=== PATIENT | female | born 1995 | race Caucasian/White ===

== ENCOUNTER 2020-07-09 06:01 | Inpatient (IN) | payer BC, SELFPAY ==
[2020-07-09] VITALS (139 sets, daily range): BP systolic 107–157; BP diastolic 62–122; PULSE 87–137; RESP 18; TEMP 36.4–37.2; O2SAT 97–100; BMI 39.4
--- NOTE | 2020-07-09 06:01 | LDADM ---
This patient, Ryann Barrera, was admitted to Labor/Delivery/Recovery 105 on 07/09/20 at 06:01. Plans for labor, pain management and were discussed with patient. Patient/family oriented to hospital policies and general routines including ID bracelet, bed and alarms, visiting hours, pain management, procedures, bathroom and other care routines, personal items, smoking policy, room service/diet and guest tray routines, infant security routines, and visiting hours. Patient/Family are encouraged to report perceived risks to care and to ask questions if they do not understand what they are told or what they should do. See OBIX for further documentation.
[2020-07-09] MEDS: LACTATED RINGERS 1,000 ML 125 ML IV CONT ×2 (07:10→10:19)
[2020-07-09] MEDS: OXYTOCIN 30 UNITS/NS 500 ML 30 UNITS/500 ML BAG 6 UNITS IV CONT (07:11)
[2020-07-09 07:23] LABS: Basophils Percent Auto 0.3 % (0.2-1.2); Eosinophils Absolute Auto 0.1 K/mm3 (0-0.3); Eosinophils Percent Auto 0.5 % (0-4.4); Hematocrit 34.5 % (37.0-47.0); Hemoglobin 11.4 g/dL (12.0-15.0); Immature Granulocyte Absolute 0.05 K/mm3 (0.00-0.031); Immature Granulocyte Percent A 0.5 % (0-0.5); Lymphocytes Absolute Auto 1.52 K/mm3 (0.9-3.2); Lymphocytes Percent Auto 15.2 % (18.3-44.2); Mean Corpuscular Volume 84.8 fl (80-100); Mean Platelet Volume 11.6 fl (7.4-10.4); Monocytes Absolute Auto 0.5 K/mm3 (0.1-0.6); Monocytes Percent Auto 5.1 % (2.6-8.5); Neutrophils Absolute Auto 7.8 K/mm3 (1.3-6.7); Neutrophils Percent Auto 78.4 % (45.5-73.1); Platelet Count Result 239 k/mm3 (150-375); Red Blood Count 4.07 M/mm3 (4.2-5.4); Red Cell Distribution Width 13.7 % (11.5-14.5)
[2020-07-09 07:35] LABS: Alanine Aminotransferase 15 U/L (4-35); Albumin Level 3.7 g/dL (3.5-5.1); Alkaline Phosphatase 163 U/L (38-126); Anion Gap 8 mmol/L (8-16); Aspartate Amino Transferase 20 U/L (14-36); Bilirubin,Total 0.4 mg/dL (0.2-1.3); Blood Urea Nitrogen 10 mg/dL (7-17); Calcium 9.4 mg/dL (8.4-10.2); Carbon Dioxide 21 mmol/L (22-30); Chloride 107 mmol/L (98-107); Estimated CRCL calculation 205 ml/min; Estimated Glomerular Filt Rate > 60; Glucose 91 mg/dL (65-105); Sodium 136 mmol/L (137-145); Uric Acid 4.5 mg/dL (2.5-7.5)
[2020-07-09 07:36] LABS: Potassium 3.7 mmol/L (3.4-5.0)
--- NOTE | 2020-07-09 08:52 | WPDOBADMIT ---
Obstetrics - Admit Note Admission Note: record reviewed. Additions to the history and/or subsequent changes in the physical findings follow. 25 y/o G1 at 39 4/7 weeks here desiring induction of labor. GBS neg. AVSS NST reactive TOCO: contractions every 2-4 min ABD soft, nontender, gravid, vertex EXT nontender Cervix 3/50/-2. AROM with clear fluid. A: IUP at term with favorable cervix, desiring induction of labor. P: Oxytocin. Anticipate .
--- NOTE | 2020-07-09 10:51 | WPDANESEPP ---
Anes - Eval Pre Procedure Procedure: labor epidural Date/Time: 07/09/20 10:51 Surgeon: shonda Preop Diagnosis: pain duringn labor Pre Op Diagnosis: iol Patient Data Age: 25 Gender: F Height: 5 ft 9.5 in Weight: 123 kg Last Vital Signs Temp 36.6 C 07/09/20 10:30 Pulse 96 07/09/20 10:49 BP 141/92 H 07/09/20 10:49 Pulse Ox 99 07/09/20 10:46 Allergies Allergy/AdvReac Type Severity Reaction Status Date / Time No Known Allergies Allergy Verified 06/14/20 14:43 Home Medications Medication Instructions Recorded Confirmed Type PNV cmb#95-ferrous fumarate-FA 1 tablet PO DAILY 06/14/20 07/09/20 History [] ergocalciferol (vitamin D2) 1,250 mcg PO WEEKLY 06/14/20 06/14/20 History [Vitamin D2] ferrous sulfate 325 mg PO DAILY 06/14/20 07/09/20 History Laboratory Tests 07/09/20 07/09/20 07/09/20 07:00 07:00 07:00 WBC 10.0 K/mm3 K/mm3 (4.5-10.0) RBC 4.07 M/mm3 L M/mm3 (4.2-5.4) Hgb 11.4 g/dL L g/dL (12.0-15.0) Hct 34.5 % L % (37.0-47.0) MCV 84.8 fl fl (80-100) MCH 28.0 pg pg (26-34) MCHC 33.0 g/dl g/dl (32-36) RDW 13.7 % % (11.5-14.5) Plt Count 239 k/mm3 k/mm3 (150-375) MPV 11.6 fl H fl (7.4-10.4) Immature Gran % (Auto) 0.5 % % (0-0.5) Neut % (Auto) 78.4 % H % (45.5-73.1) Lymph % (Auto) 15.2 % L % (18.3-44.2) [place] % (Auto) 5.1 % % (2.6-8.5) Eos % (Auto) 0.5 % % (0-4.4) Baso % (Auto) 0.3 % % (0.2-1.2) Lymph # (Auto) 1.52 K/mm3 K/mm3 (0.9-3.2) [place] # (Auto) 0.5 K/mm3 K/mm3 (0.1-0.6) Eos # (Auto) 0.1 K/mm3 K/mm3 (0-0.3) Baso # (Auto) 0.0 K/mm3 K/mm3 (0.0-0.1) Abs Immat Gran (auto) 0.05 K/mm3 H K/mm3 (0.00-0.031) Absolute Neuts (auto) 7.8 K/mm3 H K/mm3 (1.3-6.7) Absolute Nucleated RBC 0.0 K/mm3 K/mm3 (0.0-0.012) Nucleated RBC % 0.0 % % (0.0-0.2) Sodium Potassium Chloride Carbon Dioxide Anion Gap BUN Creatinine Estim Creat Clear Calc Estimated GFR Glucose Uric Acid Calcium Total Bilirubin AST ALT Alkaline Phosphatase Total Protein Albumin RPR Pending Blood Type A Positive Antibody Screen Negative 07/09/20 07:00 WBC RBC Hgb Hct MCV MCH MCHC RDW Plt Count MPV Immature Gran % (Auto) Neut % (Auto) Lymph % (Auto) [place] % (Auto) Eos % (Auto) Baso % (Auto) Lymph # (Auto) [place] # (Auto) Eos # (Auto) Baso # (Auto) Abs Immat Gran (auto) Absolute Neuts (auto) Absolute Nucleated RBC Nucleated RBC % Sodium 136 mmol/L L mmol/L (137-145) Potassium 3.7 mmol/L mmol/L (3.4-5.0) Chloride 107 mmol/L mmol/L (98-107) Carbon Dioxide 21 mmol/L L mmol/L (22-30) Anion Gap 8 mmol/L mmol/L (8-16) BUN 10 mg/dL mg/dL (7-17) Creatinine 0.50 mg/dL L mg/dL (0.7-1.0) Estim Creat Clear Calc 205 ml/min ml/min Estimated GFR > 60 (59 - ) Glucose 91 mg/dL mg/dL (65-105) Uric Acid 4.5 mg/dL mg/dL (2.5-7.5) Calcium 9.4 mg/dL mg/dL (8.4-10.2) Total Bilirubin 0.4 mg/dL mg/dL (0.2-1.3) AST 20 U/L U/L (14-36) ALT 15 U/L U/L (4-35) Alkaline Phosphatase 163 U/L H U/L (38-126) Total Protein 7.0 g/dL g/dL (6.3-8.2) Albumin 3.7 g/dL g/dL (3.5-5.1) RPR Blood Type Antibody Screen Patient hx anesthesia problems: none Family hx anesthesia problems: none PMFSH Family History Family History (Reviewed 07/09/20 @ 10:
[2020-07-09 11:20] LABS: Rapid Plasma Reagin Non-Reactive (NonReactive)
[2020-07-09 11:27] LABS: Add Urine Microscopic? NO; Appearance Urine Clear (Clear); Bilirubin Urine Negative (Negative); Blood Urine Negative (Negative); Color Urine Yellow (Yellow); Glucose Urine UA Negative (Negative); Ketones Urine Negative (Negative); Leukocyte Esterase Ur Negative LEU/UL (NEGATIVE); Nitrate Urine Negative (Negative); Protein Urine Negative (Negative); Specific Grav Ur 1.016 (1.001-1.035); Urobilinogen Urine Negative mg/dL (<2.0)
--- NOTE | 2020-07-09 12:36 | PM.OBPNLAB ---
Pain Control Date/time seen: 07/09/20 12:36 Comments: Comfortable with epidural. Pelvic Exam Dilation (cm): 4 Effacement (%): 80 station: -1 Contractions Contraction frequency: 3 Contraction pattern: Regular Status status: Category l Assessment and Plan Comments: Continue labor.
--- NOTE | 2020-07-09 16:31 | PM.OBPRVD ---
OB - Delivery Note Procedure Delivery date: 07/09/20 Procedure: Induction of labor with . Delivery monitor: external FHT and external uterine Route of delivery: Laceration description: Perineal - 2nd Degree Delivery repair: vicryl (3-0) Specimen: Yes (cord blood) Estimated blood loss (mL): 420 Anesthesia type: Epidural Disposition: PACU Complications: None Narrative: 25 y/o G1 at 39 4/7 weeks gestation who presented to the hospital for induction of labor. Oxytocin was administered intravenously. Amniotomy was performed with return of clear fluid. She received an epidural for pain control. Her labor progressed and her cervix dilated completely. She pushed with good effort and delivered the infant's head to the perineum, followed by the body. The nose and mouth were bulb suctioned. After a delay, the cord was clamped and cut. The infant was handed off the field. Cord blood was collected. The placenta delivered spontaneously and was grossly normal in appearance. The usual 3 vessel cord was noted. A second degree midline perineal laceration was sustained. This was reapproximated using 3 0 Vicryl in the usual layered fashion. Excellent hemostasis resulted as did excellent reapproximation of the normal anatomy. Needle and instrument counts were correct. The patient was taken to recovery room in stable condition. The infant went to the nursery in stable condition. I was present and scrubbed for the entire delivery. [place] Baby Date of : 07/09/20 Time of : 16:04 Weeks of gestation at delivery: 39 Infant gender: Male Weight (pounds): 7 Weight (ounces): 8 presentation: vertex position: Left Occiput Anterior Placenta delivery description: Spontaneous and Normal Configuration cord vessel description: 3 Vessels and Nuchal Cord score one minute: 9 score five minutes: 9
[2020-07-09] MEDS: OXYTOCIN 30 UNITS/NS 500 ML 30 UNITS/500 ML BAG 125 UNITS IV CONT (16:33)
--- NOTE | 2020-07-09 16:33 | PM.OBDSVD ---
DS: Admitting Diagnosis Admitting Diagnosis Admitting Diagnosis: Term with favorable cervix DS: Discharge Diagnosis Discharge Diagnosis (1) (normal spontaneous vaginal delivery): Code(s): O80 - Encounter for full-term uncomplicated delivery Status: Acute OB - DS: Summary OB Procedures : None OB Procedures Intrapartum: Spontaneous Vag Delivery OB Procedures: : None DS: Data Data Completed and Pending Labs on day of discharge: Labs from last 24 hours 07/09/20 07/09/20 07/09/20 11:19 07:00 07:00 WBC RBC Hgb Hct MCV MCH MCHC RDW Plt Count MPV Immature Gran % (Auto) Neut % (Auto) Lymph % (Auto) [place] % (Auto) Eos % (Auto) Baso % (Auto) Lymph # (Auto) [place] # (Auto) Eos # (Auto) Baso # (Auto) Abs Immat Gran (auto) Absolute Neuts (auto) Absolute Nucleated RBC Nucleated RBC % Sodium 136 L Potassium 3.7 Chloride 107 Carbon Dioxide 21 L Anion Gap 8 BUN 10 Creatinine 0.50 L Estim Creat Clear Calc 205 Estimated GFR > 60 Glucose 91 Uric Acid 4.5 Calcium 9.4 Total Bilirubin 0.4 AST 20 ALT 15 Alkaline Phosphatase 163 H Total Protein 7.0 Albumin 3.7 Urine Color Yellow Urine Appearance Clear Urine pH 6.0 Ur Specific [place] 1.016 Urine Protein Negative Urine Glucose (UA) Negative Urine Ketones Negative Ur Blood (Man) Negative Urine Nitrate Negative Urine Bilirubin Negative Urine Urobilinogen Negative Ur Leukocyte Esterase Negative RPR Blood Type A Positive Antibody Screen Negative 07/09/20 07/09/20 07:00 07:00 WBC 10.0 RBC 4.07 L Hgb 11.4 L Hct 34.5 L MCV 84.8 MCH 28.0 MCHC 33.0 RDW 13.7 Plt Count 239 MPV 11.6 H Immature Gran % (Auto) 0.5 Neut % (Auto) 78.4 H Lymph % (Auto) 15.2 L [place] % (Auto) 5.1 Eos % (Auto) 0.5 Baso % (Auto) 0.3 Lymph # (Auto) 1.52 [place] # (Auto) 0.5 Eos # (Auto) 0.1 Baso # (Auto) 0.0 Abs Immat Gran (auto) 0.05 H Absolute Neuts (auto) 7.8 H Absolute Nucleated RBC 0.0 Nucleated RBC % 0.0 Sodium Potassium Chloride Carbon Dioxide Anion Gap BUN Creatinine Estim Creat Clear Calc Estimated GFR Glucose Uric Acid Calcium Total Bilirubin AST ALT Alkaline Phosphatase Total Protein Albumin Urine Color Urine Appearance Urine pH Ur Specific [place] Urine Protein Urine Glucose (UA) Urine Ketones Ur Blood (Man) Urine Nitrate Urine Bilirubin Urine Urobilinogen Ur Leukocyte Esterase RPR Non-reactive Blood Type Antibody Screen Discharge Plan Discharge Attending physician on discharge: Chadd Ayala Discharging Clinician: Chadd Ayala Patient Disposition: Home, Self-Care Activity: pelvic rest Diet: regular Discharge Instructions: Call or return if temperature above 100.4? F, increased abdominal pain, increased vaginal bleeding or any new problems. Stand Alone Forms: General Discharge Information Follow-up/Referrals: Chadd Ayala MD [Physician] - 6 Weeks Discharge Medications: New ibuprofen 600 mg tablet 600 mg PO Q6H PRN (Reason: cramps) Qty: 30 RF: 0 ferrous sulfate 325 mg (65 mg iron) tablet 325 mg PO DAILY Qty: 30 RF: 0 No Action ergocalciferol (vitamin D2) [Vitamin D2] 1,250 mcg (50,000 unit) Capsule 1,250 mcg PO WEEKLY RF: 0 PNV cmb#95-ferrous fumarate-FA [] 28 mg iron- 800 mcg Tablet 1 tablet PO DAILY RF: 0 ferrous sulfate 325 mg (65 mg iron) Tablet 325 mg PO DAILY RF: 0 Date of admission: 07/09/20 06:01 Primary Care Provider: PHYSICIAN,X RAY INSPECTOR Admitting Provider: Chadd Ayala Attending physician on admission: Chadd Ayala
[2020-07-09] MEDS: IBUPROFEN 600 MG TABLET PO (18:42)
[2020-07-09] MEDS: BENZOCAINE 20% AER SPR (*SP) 56 GM CAN 1 SPRAY TOPICAL (19:20)
[2020-07-09] MEDS: WITCH HAZEL 40 PADS 1 PAD TOPICAL (19:20)
[2020-07-09] MEDS: ONDANSETRON INJ 4 MG/2 ML VIAL IV PUSH (19:37)
--- NOTE | 2020-07-09 19:55 | OBPPTRN ---
Patient transferred to post room # 280 via wheelchair. Support person and (in crib) present. Oriented to unit, room, information board, rooming in, admission packet and security measures. Patient verbalizes understanding.
[2020-07-09] MEDS: ACETAMINOPHEN 325 MG TABLET 650 MG PO (20:33)
[2020-07-10] MEDS: IBUPROFEN 600 MG TABLET PO ×4 (03:01→22:15)
[2020-07-10] MEDS: ACETAMINOPHEN 325 MG TABLET 650 MG PO ×4 (03:02→22:15)
[2020-07-10 05:33] LABS: Hematocrit 27.5 % (37.0-47.0)
[2020-07-10] MEDS: POLYSACCHARIDE IRON COMPLEX 150 MG CAPSULE PO ×2 (07:30→16:45)
[2020-07-10] MEDS: MULTIVIT/MIN/PREN/FOL AC/IRON TABLET 1 TAB PO (07:30)
[2020-07-10] MEDS: DOCUSATE SODIUM 100 MG CAPSULE PO (07:31)
--- NOTE | 2020-07-10 08:12 | WPDANLDPN2 ---
Anes-Prog Note L&D Date/Time: 07/10/20 08:12 Comfortable throughout: labor and delivery Neuraxial method: epidural Epidural/Spinal procedure site: clean & non-tender Neuro status: Neuro function grossly intact. Cardiovascular status: normal Respiratory status: normal Airway patency: baseline Mental status: baseline Post-Op hydration status: normal Vital Signs: Last Vital Signs Temp 37.2 C 07/09/20 20:00 Pulse 108 H 07/09/20 20:00 Resp 18 07/09/20 20:00 BP 130/81 07/09/20 20:00 Pulse Ox 98 07/09/20 20:00 Pain score (VAS): 2 I/O: Intake & Output 07/09/20 07/10/20 07/10/20 23:59 07:59 15:59 Intake Total 1488 Output Total 600 Balance 888 Patient feedback: Patient satisfied with anesthetic care.
[2020-07-10 08:30] VITALS: BP 121/74; PULSE 93; RESP 16; TEMP 36.4; O2SAT 100
--- NOTE | 2020-07-10 11:36 | PM.OBPNVD ---
OB - PN: Subj Subjective Date/time seen: 07/10/20 11:36 Narrative: Pain OK. Does not want circumcision for her son. OB - PN: Obj Data Labs CBC & Chem 7: 07/10/20 04:44 07/09/20 07:00 Labs: Laboratory Results - last 24 hr 07/10/20 04:44 Hgb 9.0 L Hct 27.5 L OB - PN A/P Plan Comments: A: PPD#1, doing well. P: Routine care. Exam Psych: Other: AVSS ABD soft, nontender, fundus firm EXT nontender
--- NOTE | 2020-07-10 18:15 | PC.NURSE ---
Patient viewed the discharge video Mother & Baby Care, The First Two Weeks . Patient was given the opportunity and encouraged to ask questions. Patient verbalized understanding of information shared and has been given the mother/baby guide for home reference.
[2020-07-10 19:40] VITALS: BP 145/71; PULSE 123; RESP 18; TEMP 36.6; O2SAT 99
[2020-07-11] MEDS: DOCUSATE SODIUM 100 MG CAPSULE PO (07:29)
[2020-07-11] MEDS: POLYSACCHARIDE IRON COMPLEX 150 MG CAPSULE PO (07:29)
[2020-07-11] MEDS: MULTIVIT/MIN/PREN/FOL AC/IRON TABLET 1 TAB PO (07:29)
[2020-07-11] MEDS: ACETAMINOPHEN 325 MG TABLET 650 MG PO (07:30)
[2020-07-11] MEDS: IBUPROFEN 600 MG TABLET PO (07:30)
[2020-07-11 08:08] VITALS: BP 137/74; PULSE 122; RESP 16; TEMP 37; O2SAT 100
[2020-07-11 09:13] VITALS: PULSE 104
--- NOTE | 2020-07-11 09:59 | PM.OBPNVD ---
OB - PN: Subj Subjective Date/time seen: 07/11/20 09:59 Narrative: Pain OK. Would like to go home. OB - PN: Obj Data Labs CBC & Chem 7: 07/10/20 04:44 07/09/20 07:00 OB - PN A/P Plan Comments: A: PPD#2, doing well. P: Home to f/u 6 weeks. Exam Psych: Other: AVSS ABD soft, nontender, fundus firm EXT nontender
--- NOTE | 2020-07-11 12:02 | PC.NURSE ---
Patient discharged home, ambulated to awaiting car. Instructions given and follow-up appointment scheduled. All questions answered.
[2020-07-12 08:19] VITALS: BP 137/81; PULSE 121; RESP 20; TEMP 37.5; O2SAT 99
== END 2020-07-11 11:30 | disposition home or self-care (01) | DRG 807 ==
LOC: ANHLDR 16:35 → ANHOB2 19:59
PROVIDERS: Admitting Provider Obstetrics & Gynecology; Visit Provider Obstetrics & Gynecology
DX: O13.4 Gestational [pregnancy-induced] hypertension without significant proteinuria, complicating childbirth (principal); Z37.0 Single live birth; Z3A.39 39 weeks gestation of pregnancy; O99.214 Obesity complicating childbirth; E66.9 Obesity, unspecified; O70.1 Second degree perineal laceration during delivery; Z23 Encounter for immunization; O99.344 Other mental disorders complicating childbirth; F98.8 Other specified behavioral and emotional disorders with onset usually occurring in childhood and adolescence; F41.8 Other specified anxiety disorders
CPT/HCPCS: 36415; 80053; 81003; 84550; 85014; 85018; 85025; 86592; 86850; 86900; 86901; 90471; 90653; A9270; G0008; J2405; J2590; J2795; J7120

== ENCOUNTER 2020-07-19 22:45 | Emergency (ER) | payer BC, SELFPAY ==
[2020-07-19] VITALS (10 sets, daily range): BP systolic 151–189; BP diastolic 90–106; PULSE 81–95; RESP 13–24; TEMP 36.2; O2SAT 98–100
--- NOTE | ~2020-07-19 | XR_ITS ---
EXAMINATION: XR chest 1V portable 07/19/2020 23:28 INDICATION: Edema. Hypertension. PROCEDURE: AP portable chest COMPARISON: No prior studies for comparison. FINDINGS: The lungs are clear. The cardiomediastinal silhouette is within normal limits. There are no pleural effusions. There is no pneumothorax suspected. IMPRESSION: 1: NO ACUTE CARDIOPULMONARY DISEASE. Reviewed, dictated and finalized at location A.
[2020-07-20] VITALS (17 sets, daily range): BP systolic 137–158; BP diastolic 89–103; PULSE 75–98; RESP 13–23; O2SAT 98–100
[2020-07-20 00:24] LABS: Basophils Absolute Auto 0.1 K/mm3 (0.0-0.1); Basophils Percent Auto 0.7 % (0.2-1.2); Eosinophils Absolute Auto 0.1 K/mm3 (0-0.3); Eosinophils Percent Auto 1.4 % (0-4.4); Hematocrit 36.3 % (37.0-47.0); Hemoglobin 11.8 g/dL (12.0-15.0); Immature Granulocyte Absolute 0.07 K/mm3 (0.00-0.031); Immature Granulocyte Percent A 0.8 % (0-0.5); Lymphocytes Absolute Auto 2.18 K/mm3 (0.9-3.2); Lymphocytes Percent Auto 24.1 % (18.3-44.2); Mean Corpuscular HGB Conc 32.5 g/dl (32-36); Mean Corpuscular Hemoglobin 27.7 pg (26-34); Mean Corpuscular Volume 85.2 fl (80-100); Mean Platelet Volume 10.1 fl (7.4-10.4); Monocytes Absolute Auto 0.4 K/mm3 (0.1-0.6); Monocytes Percent Auto 4.5 % (2.6-8.5); Neutrophils Absolute Auto 6.2 K/mm3 (1.3-6.7); Neutrophils Percent Auto 68.5 % (45.5-73.1); Platelet Count Result 418 k/mm3 (150-375); Red Blood Count 4.26 M/mm3 (4.2-5.4); White Blood Count 9.1 K/mm3 (4.5-10.0)
[2020-07-20 00:37] LABS: Alanine Aminotransferase 33 U/L (4-35); Albumin Level 4.4 g/dL (3.5-5.1); Alkaline Phosphatase 134 U/L (38-126); Anion Gap 17 mmol/L (8-16); Aspartate Amino Transferase 30 U/L (14-36); Bilirubin,Total 0.3 mg/dL (0.2-1.3); Blood Urea Nitrogen 18 mg/dL (7-17); Calcium 9.7 mg/dL (8.4-10.2); Carbon Dioxide 25 mmol/L (22-30); Chloride 103 mmol/L (98-107); Estimated Glomerular Filt Rate > 60; Glucose 92 mg/dL (65-105); Potassium 3.8 mmol/L (3.4-5.0); Sodium 145 mmol/L (137-145); Uric Acid 8.6 mg/dL (2.5-7.5)
[2020-07-20 00:45] LABS: NT Pro B Type Natriuretic Pept 99 PG/ML (5-100)
[2020-07-20 00:48] LABS: INR 1.1; Prothrombin Time 13.9 Seconds (11.1-14.7)
[2020-07-20 01:12] LABS: Add Urine Microscopic? YES; Appearance Urine Cloudy (Clear); Bacteria Urine Trace /hpf; Bilirubin Urine Negative (Negative); Blood Urine 2+ (Negative); Color Urine Yellow (Yellow); Glucose Urine UA Negative (Negative); Ketones Urine Negative (Negative); Leukocyte Esterase Ur 2+ LEU/UL (Negative); Mucus Urine Moderate /lpf; Nitrate Urine Negative (Negative); Protein Urine Negative (Negative); Specific Grav Ur 1.025 (1.001-1.035); Squamous Epithelial Cell Urine Occasional /hpf (Few); Urobilinogen Urine Negative mg/dL (<2.0); WBC Urine >75 /hpf
--- NOTE | 2020-07-20 01:16 | ED.LOWEXIN ---
HPI - Extremity Injury (Lower) General Chief Complaint: Extremity Injury, Lower Stated Complaint: POST COMPLICATIONS Time Seen by Provider: 07/19/20 22:54 Source: patient Mode of arrival: ambulatory Limitations: no limitations History of Present Illness HPI Narrative: This patient is a 25 year old female who presents for evaluation of left leg swelling. She states she had normal vaginal term delivery 10 days ago. She reports feet swelling since she delivered but she has continued to have persistent swelling to left lateral foot and ankle. She called a nursing line and they recommended that she come to ER for evaluation of a DVt. She denies history of a DVT or PE. She denies chest pain, sob, dizziness, numbness or tingling. It was also noticed that patient is hypertensive. She states she has had elevated blood pressure during her but she never required medication. She does reports mild headache since she left hospital. Related Data Home Medications Medication Instructions Recorded Confirmed PNV cmb#95-ferrous fumarate-FA 1 tablet PO DAILY 06/14/20 07/09/20 [] ergocalciferol (vitamin D2) 1,250 mcg PO WEEKLY 06/14/20 06/14/20 [Vitamin D2] ferrous sulfate 325 mg PO DAILY 06/14/20 07/09/20 Allergies Allergy/AdvReac Type Severity Reaction Status Date / Time No Known Allergies Allergy Verified 07/19/20 22:52 Review of Systems Review of Systems: All systems reviewed & are unremarkable except as noted in HPI and below Constitutional: Constitutional: Denies chills Cardiovascular: Cardiovascular: Denies chest pain and Denies radiating jaw, neck or arm pain Respiratory: Respiratory: Denies cough and Denies dyspnea Gastrointestinal: Gastrointestinal: Denies nausea and Denies vomiting Neurologic: Denies focal weakness and Denies numbness [facility] Family History Family History Father Seizure Anxiety ADD (attention deficit disorder) Sibling ADD (attention deficit disorder) Arthritis, rheumatoid Acid reflux Social History Social History Smoking status: Never smoker Substance use: never Spiritual care concerns: No Exam Const: General: no acute distress and alert HENMT: Head: normocephalic and atraumatic Face and sinus: face symmetric Eyes: EOM: EOMs intact bilaterally Chest: Chest palpation & inspection: normal inspection of the chest Resp: Effort & Inspection: normal respiratory effort, no retractions and no use of accessory muscles Auscultation: clear to auscultation bilaterally Cardio: Rate: regular rate Rhythm: regular rhythm Heart sounds: no murmurs GI: GI Palp: Yes Soft to palpation, No Tenderness to palpation present (GI), No Guarding due to palpation present (GI) and No Rigid due to palpation Skin: General skin exam: normal color Rashes: no rashes Neuro: General: patient oriented x3 and moves all extremities Extrem: Other: trace pedal edema , greater on left foot, strong palpable pedal pulses. no tenderness. no calf tenderness Psych: Mental Status: mental status grossly normal Affect: normal affect Course Reevaluation(s) Reevaluation #1: I have discussed with patient discharge plan to get ultrasound in the morning and to started on antihypertensives. Date: 07/20/20 Time: 01:31 Consultations Consultation #1: I discussed case including ordered a venous doppler with Dr. Leigh Navarro. I also discussed patient with multiple elevated BPs and he recommends starting on labetalol 100 mg bid and to have patient call the office tomorrow. Date: 07/20/20 Time: 01:30 Vital Signs Vital signs: Vital Signs Temperature 97.2 F L 07/19/20 22:47 Pulse Rate 87 07/19/20 22:47 Respiratory Rate 16 07/19/20 22:47 Blood Pressure 189/106 H 07/19/20 22:47 Pulse Oximetry 100 07/19/20 22:47 Temperature 97.2 F L 07/19/20 22:47 P
[2020-07-20] MEDS: ENOXAPARIN 120 MG/0.8 ML SYRINGE SUB-Q (01:39)
[2020-07-20] MEDS: LABETALOL HCL 100 MG TABLET PO (01:40)
== END 2020-07-20 01:54 | disposition home or self-care (01) ==
PROVIDERS: Emergency Provider General Practice
DX: O16.5 Unspecified maternal hypertension, complicating the puerperium (principal); O99.893 Other specified diseases and conditions complicating puerperium; M79.89 Other specified soft tissue disorders
CPT/HCPCS: 36415; 71045; 80053; 81001; 83880; 84550; 85025; 85610; 85730; 87086; 87088; 96372; 99283; A9270; J1650

== ENCOUNTER 2020-07-20 07:34 | Outpatient (CLI) | payer BC, SELFPAY ==
--- NOTE | ~2020-07-20 | US_ITS ---
EXAMINATION: US venous doppler [facility] DATE: 07/20/2020 08:13 INDICATION: Lower limb pain and swelling 11 days TECHNIQUE: Grayscale ultrasound images without and with compression and Doppler ultrasound images of the left lower extremity veins were obtained. COMPARISON: None. FINDINGS: The visualized portions of left common femoral vein, profunda (deep) femoral vein, femoral vein, popl iteal vein, peroneal veins, posterior tibial veins, gastrocnemius vein and greater saphenous vein out flow are patent. IMPRESSION: 1. No deep venous thrombosis in the left lower limb. Reviewed, dictated and finalized at location B.
== END 2020-07-20 07:35 | disposition home or self-care (01) ==
LOC: ANHIMG 07:37
PROVIDERS: Visit Provider Obstetrics & Gynecology
DX: M79.89 Other specified soft tissue disorders (principal)
CPT/HCPCS: 93971

== ENCOUNTER 2020-08-03 09:33 | Outpatient (CLI) | payer BC, SELFPAY ==
--- NOTE | ~2020-08-03 | XR_ITS ---
EXAMINATION: XR pelvis 1-2V DATE: 08/03/2020 09:55 INDICATION: Tailbone pain. Recent childbirth. TECHNIQUE: An anteroposterior view of the pelvis was obtained on 2 radiographs. COMPARISON: None. FINDINGS: Bone alignment is normal. No fracture. Joint spaces are well maintained. IMPRESSION: 1. Normal pelvis. Reviewed, dictated and finalized at location B. [employer] ASSISTANT IMPRESSION: 1. Normal pelvis.
== END 2020-08-03 09:34 | disposition home or self-care (01) ==
PROVIDERS: Visit Provider Student in an Organized Health Care Education/Training Program
DX: M53.3 Sacrococcygeal disorders, not elsewhere classified (principal)
CPT/HCPCS: 72170

== ENCOUNTER 2022-03-30 17:37 | Emergency (ER) | payer BC, SELFPAY ==
[2022-03-30 17:47] VITALS: BP 152/102; PULSE 116; RESP 16; TEMP 37.3; O2SAT 99
--- NOTE | 2022-03-30 17:48 | ED.SKABFB ---
HPI - Skin/Abscess/Foreign Bdy General Chief complaint: Skin/Abscess/Foreign Body Stated complaint: poison lyle Time Seen by Provider: 03/30/22 17:48 Source: patient Mode of arrival: ambulatory Limitations: no limitations History of Present Illness HPI narrative: 26-year-old female presents with complaint of poison lyle to left arm and posterior left thigh for 1 week. Has applied calamine, Benadryl cream and hydrocortisone cream with no relief. Reports that she has been scratching at left arm due to itching. Yesterday noticed redness and warmth, increased pain. Is concerned for infection. All systems reviewed and negative except as noted above. Related Data Home Medications Medication Instructions Recorded Confirmed ergocalciferol (vitamin D2) 1,250 1,250 mcg PO WEEKLY 06/14/20 06/14/20 mcg (50,000 unit) capsule (Vitamin D2) ferrous sulfate 325 mg (65 mg 325 mg PO DAILY 06/14/20 07/09/20 iron) tablet Allergies Allergy/AdvReac Type Severity Reaction Status Date / Time No Known Allergies Allergy Verified 07/19/20 22:52 Review of Systems Review of Systems: CONSTITUTIONAL: Denies fever, chills, or sweats. EYES: Denies visual changes, redness, or discharge. ENT: Denies rhinorrhea, congestion, sore throat, or otalgia. CARDIOVASCULAR: Denies chest pain, palpitations, or edema. RESPIRATORY: Denies cough or dyspnea. GASTROINTESTINAL: Denies abdominal pain, nausea, vomiting, or diarrhea. GENITOURINARY: Denies dysuria or hematuria. SKIN: Reports rash and itching. MUSCULOSKELETAL: Denies back pain, joint pain, or myalgia. NEUROLOGIC: Denies headache, numbness, or weakness. PSYCHIATRIC: Denies anxiety or depression. All other systems reviewed are negative, except as documented in HPI. [facility] Family History Family History Father Seizure Anxiety ADD (attention deficit disorder) Sibling ADD (attention deficit disorder) Arthritis, rheumatoid Acid reflux Social History Social History Smoking status: Never smoker Substance use: never Spiritual care concerns: No Comments At time of signature, agree with nursing past medical, surgical, social and family history. There is no relevant family history pertinent to the presenting complaint. Exam Narrative: GENERAL: This is a well-nourished, well-developed patient, in no apparent distress. HEAD: normocephalic, atraumatic. EYES: PERRL. Sclera clear/white. Vision is grossly intact. EARS: External ears normal NOSE: External nose normal NECK: Neck supple, non-tender without lymphadenopathy, masses or thyromegaly. CARDIOVASCULAR: Regular rate and rhythm without murmurs, gallops, or rubs. RESPIRATORY: Clear to auscultation. Breath sounds equal bilaterally. No wheezes, rales, or rhonchi. SKIN: warm, Dry, intact with no suspicious lesions length, good texture and turgor. Erythematous, vesicular rash to left upper arm and forearm, left posterior thigh. Rash to left arm is swollen, tender and warm to palpation. NEURO: awake, alert, and oriented to person, place and time. There were no obvious focal neurologic abnormalities. EXTREMITIES: No joint tenderness, effusion, or edema noted. Course Course Level of Care: Express Care Visit Vital Signs Vital signs: Vital Signs Temperature 37.3 C 03/30/22 17:47 Pulse Rate 116 H 03/30/22 17:47 Respiratory Rate 16 03/30/22 17:47 Blood Pressure 152/102 H 03/30/22 17:47 Pulse Oximetry 99 03/30/22 17:47 Oxygen Delivery Room Air 03/30/22 17:47 Temperature 37.3 C 03/30/22 17:47 Pulse Rate 116 H 03/30/22 17:47 Respiratory Rate 16 03/30/22 17:47 Blood Pressure 152/102 H 03/30/22 17:47 Pulse Oximetry 99 03/30/22 17:47 Oxygen Delivery Room Air 03/30/22 17:47 Reviewed MDM - Skin/Abscess/Foreign Bdy MDM Narrative Medical decision making narrative: Patient is aware of diagn
== END 2022-03-30 17:57 | disposition home or self-care (01) ==
PROVIDERS: Emergency Provider Nurse Practitioner Family
DX: L25.5 Unspecified contact dermatitis due to plants, except food (principal); L03.114 Cellulitis of left upper limb
CPT/HCPCS: 99213; G0463

== ENCOUNTER 2022-04-20 18:47 | Emergency (ER) | payer BC, SELFPAY ==
[2022-04-20 19:30] VITALS: BP 176/95; PULSE 105; RESP 20; TEMP 36.9; O2SAT 100
--- NOTE | 2022-04-20 21:57 | ED.FEMALEGU ---
HPI - Female Genitourinary General Chief complaint: Vaginal Bleeding Stated complaint: vaginal bleeding with large clots Time Seen by Provider: 04/20/22 21:36 History of Present Illness HPI Narrative: Patient is a 26-year-old female here for evaluation of heavy vaginal bleeding for the past 3 days. Patient states that this is a normal timing for her menstrual cycle, but over the last day, she has noted clots. Additionally feels somewhat lightheaded and dizzy, but states that seeing the clots made her anxious, and her anxiety typically manifests as dizziness. Denies chance of . Denies abdominal pain. Related Data Allergies Allergy/AdvReac Type Severity Reaction Status Date / Time cephalexin Allergy Rash Verified 04/20/22 19:36 Review of Systems Review of Systems: Gen: Denies fevers or chills Eyes: Denies eye pain or visual change ENT: Denies congestion Respiratory: Denies shortness of breath or cough CV: Denies chest pain or palpitations GI: Denies abdominal pain nausea, emesis or diarrhea reports heavy menstrual bleeding. Denies burning, urgency, frequency or hematuria Musculoskeletal: Denies back pain or muscle pain Neuro: Denies numbness, tingling, weakness or focal weakness Skin: Denies rash Except as documented, all other systems reviewed and negative PMFSH Family History Family History Father Seizure Anxiety ADD (attention deficit disorder) Sibling ADD (attention deficit disorder) Arthritis, rheumatoid Acid reflux Social History Social History Smoking status: Never smoker Substance use: never Spiritual care concerns: No Exam Narrative: APPEARANCE: Well appearing, no pain in distress, well-nourished. Head: Normocephalic and atraumatic. EYES: PERRLA/EOMI, conjunctivae clear NOSE: No nasal drainage EARS: External ear normal in appearance THROAT: Oropharynx is clear. Mucous membranes are moist. NECK: Supple. No adenopathy, no masses. RESPIRATORY: Airway patent, respirations nonlabored. Clear to auscultation bilaterally, no rales, rhonchi, wheezing. CARDIOVASCULAR: Regular rate and rhythm without murmurs, rubs, or gallops. ABDOMINAL: Normoactive bowel sounds. Soft, nontender, nondistended. No rebound tenderness or guarding. MUSCULOSKELETAL: Extremities are warm and well-perfused. Moves all extremities well. No edema. : exam performed with organizational development director lexi, cervix is normal in appearance, scant amount of blood noted in vaginal vault, no clots. NEURO: Normal speech. No focal neurologic deficits. SKIN: Skin is warm and dry. No rashes. PSYCHIATRIC: Normal affect/mood.. Course Vital Signs Vital signs: Vital Signs Temperature 98.4 F 04/20/22 19:30 Pulse Rate 105 H 04/20/22 19:30 Respiratory Rate 20 04/20/22 19:30 Blood Pressure 176/95 H 04/20/22 19:30 Pulse Oximetry 100 04/20/22 19:30 Oxygen Delivery Room Air 04/20/22 19:30 Temperature 98.4 F 04/20/22 19:30 Pulse Rate 92 04/20/22 23:31 Respiratory Rate 18 04/20/22 23:31 Blood Pressure 156/99 H 04/20/22 23:31 Pulse Oximetry 99 04/20/22 23:31 Oxygen Delivery Room Air 04/20/22 19:30 MDM - Female Genitourinary MDM Narrative Medical decision making narrative: 26-year-old female here for evaluation of heavy vaginal bleeding on her menstrual cycle today with blood clots noted. Here, she is nontoxic-appearing, was initially tachycardic but resolved throughout hospital stay. Her hemoglobin and hematocrit are normal. Urine negative. She has scant blood in the vaginal vault, no visible polyp or visible structural abnormality to explain bleeding. Bleeding improved throughout ED stay without intervention. Encouraged her to follow-up with her DENTAL CERAMIST ASSISTANT for further evaluation if bleeding should continue. Discussed return precautions and she voiced understanding. Lab Data Result d
[2022-04-20 22:00] VITALS: BP 173/88; PULSE 101; RESP 18; O2SAT 99
[2022-04-20 23:04] LABS: Basophils Absolute Auto 0.1 K/mm3 (0.0-0.1); Basophils Percent Auto 0.6 % (0.2-1.2); Eosinophils Absolute Auto 0.1 K/mm3 (0-0.3); Eosinophils Percent Auto 0.9 % (0-4.4); Hematocrit 36.7 % (37.0-47.0); Hemoglobin 12.2 g/dL (12.0-15.0); Immature Granulocyte Absolute 0.02 K/mm3 (0.00-0.031); Immature Granulocyte Percent A 0.2 % (0-0.5); Lymphocytes Absolute Auto 2.51 K/mm3 (0.9-3.2); Lymphocytes Percent Auto 23.3 % (18.3-44.2); Mean Corpuscular HGB Conc 33.2 g/dl (32-36); Mean Corpuscular Hemoglobin 27.7 pg (26-34); Mean Corpuscular Volume 83.2 fl (80-100); Mean Platelet Volume 10.2 fl (7.4-10.4); Monocytes Absolute Auto 0.6 K/mm3 (0.1-0.6); Monocytes Percent Auto 5.2 % (2.6-8.5); Neutrophils Absolute Auto 7.5 K/mm3 (1.3-6.7); Neutrophils Percent Auto 69.8 % (45.5-73.1); Platelet Count Result 264 k/mm3 (150-375); Red Blood Count 4.41 M/mm3 (4.2-5.4); Red Cell Distribution Width 12.4 % (11.5-14.5); White Blood Count 10.8 K/mm3 (4.5-10.0)
[2022-04-20 23:31] VITALS: BP 156/99; PULSE 92; RESP 18; O2SAT 99
== END 2022-04-20 23:49 | disposition home or self-care (01) ==
PROVIDERS: Physician Assistant; Emergency Provider Emergency Medicine
DX: N92.0 Excessive and frequent menstruation with regular cycle (principal)
CPT/HCPCS: 36415; 81025; 85025; 99284